=== PATIENT | male | born 1960 | race Caucasian/White ===

== ENCOUNTER 2020-07-23 03:33 | Emergency (ER) | payer OTHER, SELFPAY ==
[2020-07-23 03:40] VITALS: BP 143/73; PULSE 61; RESP 16; TEMP 36.2; O2SAT 100
--- NOTE | 2020-07-23 04:40 | ED.GENADULT ---
HPI - General Adult General Chief complaint: Skin/Abscess/Foreign Body Stated complaint: wasp sting to L hand Time Seen by Provider: 07/23/20 04:32 Source: patient and family Mode of arrival: ambulatory Limitations: no limitations History of Present Illness HPI narrative: Patient is 59 years old white male got stung by a wasp to the dorsal side of left hand 40 hours ago. Subsequently patient developed swelling of the left hand with itching rash localized to the left hand and left forearm. Patient denies any trouble breathing or swallowing or shortness of breath Related Data Allergies Allergy/AdvReac Type Severity Reaction Status Date / Time No Known Allergies Allergy Verified 07/23/20 03:49 Review of Systems Review of Systems: Narrative: CONSTITUTIONAL: Denies fever, chills, or sweats. EYES: Denies visual changes, redness, or discharge. ENT: Denies rhinorrhea, congestion, sore throat, or otalgia. CARDIOVASCULAR: Denies chest pain, palpitations, or edema. RESPIRATORY: Denies cough or dyspnea. GASTROINTESTINAL: Denies abdominal pain, nausea, vomiting, or diarrhea. GENITOURINARY: Denies dysuria or hematuria. SKIN: Denies rash or itching. MUSCULOSKELETAL: Denies back pain, joint pain, or myalgia. NEUROLOGIC: Denies headache, numbness, or weakness. PSYCHIATRIC: Denies anxiety or depression. Exam Narrative: Exam Narrative: General appearance: Well-developed, well-nourished Skin: Normal color, left hand and distal left forearm showed diffuse swelling, and rash Head: Normocephalic, nontraumatic Eyes: Clear conjunctiva ENT: Oropharynx normal, ears normal, nose normal Neck: Supple, nontender Chest and respiratory: Airway patent, no respiratory distress, no accessory muscle use Heart: Regular rate/rhythm Abdomen: Soft, nontender, no organomegaly, quiet bowel sounds Vascular: Normal peripheral pulses, normal capillary refill. Musculoskeletal: Normal range of motion, nontender back Neurologic: Alert and oriented ?3, [employer] is normal as tested, no gross motor deficit Course Course Emergency Course: Stable Vital Signs Vital signs: Vital Signs Temperature 36.2 C L 07/23/20 03:40 Pulse Rate 61 07/23/20 03:40 Respiratory Rate 16 07/23/20 03:40 Blood Pressure 143/73 H 07/23/20 03:40 Pulse Oximetry 100 07/23/20 03:40 Temperature 36.2 C L 07/23/20 03:40 Pulse Rate 61 07/23/20 03:40 Respiratory Rate 16 07/23/20 03:40 Blood Pressure 143/73 H 07/23/20 03:40 Pulse Oximetry 100 07/23/20 03:40 Medical Decision Making MDM Narrative Medical decision making narrative: Patient presents with localized allergic reaction to a wasp Vital Signs Vital Signs: Vital Signs Temperature 36.2 C L 07/23/20 03:40 Pulse Rate 61 07/23/20 03:40 Respiratory Rate 16 07/23/20 03:40 Blood Pressure 143/73 H 07/23/20 03:40 Pulse Oximetry 100 07/23/20 03:40 Temperature 36.2 C L 07/23/20 03:40 Pulse Rate 61 07/23/20 03:40 Respiratory Rate 16 07/23/20 03:40 Blood Pressure 143/73 H 07/23/20 03:40 Pulse Oximetry 100 07/23/20 03:40 Critical Care Time Critical Care Time Critical Care Time: No Discharge Plan Discharge Clinical Impression: Allergic reaction to insect bite Insect bites Qualifiers: Encounter type: initial encounter Site of insect bite: hand Laterality: left Qualified Code(s): S60.562A - Insect bite (nonvenomous) of left hand, initial encounter Patient Disposition: Home, Self-Care Condition: Stable Instructions: Insect Bite or Sting (ED), Allergies (ED) Additional Instructions: Return if symptoms are worsening , call your family physician for appointment, take Tylenol as as needed for ac
[2020-07-23] MEDS: EPINEPHrine HCL INJ 1 MG/ML AMPUL 0.3 MG IM (04:52)
[2020-07-23] MEDS: predniSONE 20 MG TABLET 60 MG PO (04:52)
[2020-07-23] MEDS: LORATADINE 10 MG TABLET PO (05:48)
[2020-07-23 05:49] VITALS: BP 129/69; PULSE 67; RESP 16; TEMP 36.6; O2SAT 99
== END 2020-07-23 05:53 | disposition home or self-care (01) ==
PROVIDERS: Emergency Provider Emergency Medicine; PCP Family Medicine
DX: T63.461A Toxic effect of venom of wasps, accidental (unintentional), initial encounter (principal)
CPT/HCPCS: 96372; 99283; A9270; J0171; J7512